=== PATIENT | female | born 1990 | race Caucasian/White ===

== ENCOUNTER 2018-02-23 04:25 | Inpatient (IN) ==
[2018-02-23] MEDS ORDERED: miSOPROStol 25 MCG TABLET PO PRN (05:55)
[2018-02-23] MEDS ORDERED: Famotidine 20 MG/2 ML VIAL IVP PRN (05:55)
[2018-02-23] MEDS ORDERED: *HR* Nalbuphine 10 MG/ML AMPUL IVP PRN (05:55)
[2018-02-23] MEDS ORDERED: Metoclopramide 10 MG/2 ML VIAL IVP PRN (05:55)
[2018-02-23] MEDS ORDERED: Ringers Solution, Lactated 1,000 ML IVC SCH (06:00)
[2018-02-23 06:41] LABS: Basophils % 0.2 %; Eosinophils # 0.1 K/mcL (0.0-0.6); Eosinophils % 0.9 %; Hematocrit 32.3 % (35.3-44.9); Hemoglobin 10.1 g/dL (11.5-15.4); Immature Granulocytes % 0.7 % (0-4); Lymphocytes # 3.8 K/mcL (0.6-4.6); Lymphocytes % 31.3 %; Mean Corpuscular HGB Conc 31.3 g/dL (31.6-35.5); Mean Corpuscular Hemoglobin 25.9 pg (28.0-33.3); Mean Corpuscular Volume 82.8 fL (83.0-100.0); Mean Platelet Volume 12.8 fL (9.4-12.4); Monocytes % 8.4 %; Neutrophils # 7.1 K/mcL (1.6-8.9); Platelet Count 188 K/mcL (140-400); Red Cell Distribution Width 12.9 % (11.5-14.5); Segmented Neutrophils % 58.5 %
[2018-02-23 06:50] LABS: Amphetamine Screen,Urine Negative ng/mL (Cutoff=1000); Barbiturate Screen,Urine Negative ng/mL (Cutoff=200); Benzodiazepines Screen,Urine Negative ng/mL (Cutoff=200); Cannabinoid Screen,Urine Negative ng/mL (Cutoff = 50); Cocaine Screen,Urine Negative ng/mL (Cutoff= 300); Opiate Screen,Urine Negative ng/mL (Cutoff=300); Phencyclidine Screen,Urine Negative ng/mL (Cutoff=25)
[2018-02-23] MEDS ORDERED: Acetaminophen 325 MG TABLET PO ONE (08:38)
--- NOTE | 2018-02-23 13:12 | OB Labor Progress Note ---
Date of Encounter: 02/23/18 Time of Encounter: 13:10 Labor Progress Note - Subjective Subjective: Pt reports uc's getting stronger - Cervix Cervix: 5/90/-1 - Heart Tones Heart Tones: RNST - [place]: uc's q 2-3 rashmi. - Interventions Interventions: AROM clear - Plan Plan: Expect
[2018-02-23] MEDS ORDERED: Epidural Premix (fent/bupiv) 110 ML EP ONE (13:23)
[2018-02-23] MEDS ORDERED: Epidural Premix (fent/bupiv) 110 ML EP SCH (13:30)
--- NOTE | 2018-02-23 14:05 | Anesthesia Evaluation PreOp ---
Date of Encounter: 02/23/18 Time of Encounter: 13:20 - Past History Planned Operation: MILAD Cardiac History: Denies any Significant Hx Pulmonary History: Denies Any Significant HX MANAGER USER EXPERIENCE History: Denies Any Significant HX Other Medical History: Denies Any Significant HX Anesthesia History: No Prior Anesthetic Complications : No Alcohol Use: none Drug use: none Medications and Allergies Omeprazole [PriLOSEC] 20 mg PO BID 02/23/18 [History] 3 Allergy/AdvReac Type Severity Reaction Status Date / Time Amoxicillin [From Augmentin] Allergy Rash Verified 02/23/18 05:52 clavulanic acid Allergy Rash Verified 02/23/18 05:52 [From Augmentin] sulfamethoxazole Allergy See Verified 02/23/18 05:52 [From Bactrim] Comments trimethoprim [From Bactrim] Allergy See Verified 02/23/18 05:52 Comments Anesthesia Results - Labs 02/23/18 06:30
--- NOTE | 2018-02-23 14:18 | Anesthesia Procedures ---
Date of Encounter: 02/23/18 Time of Encounter: 13:20 Procedures: Anesthesia - Epidural/Spinal Patient ID/Chart reviewed: Yes Patient examined: Yes OB Eval: Gestational age: 40 OB Eval: : 2 OB Eval: Hx Para: 1 OB Eval: Dilated at (cm): 5 OB Eval: Contractions: Non-stressed pattern Consent Obtained: Yes Supplemental Oxygen: None/Room Air Site Prep: Aseptic Technique, Sterile prep and drape, Povidone-Iodine 1% Patient position: upright Amount of Local Anesthetic used: 3 Touhy Needle Gauge: 18 Touhy Needle Depth (cm): 6 Catheter Depth at Skin (cm): 9 Test Dose Result: Negative Infusion Rate (mls/hr): [address]: Tegaderm, Tape Interspace Used: L4-L5 Loss of Resistance (KEYSHAWN): Yes Blood: No CSF: No Paresthesia: No Vitals + FHT's: STABLE THROUGHOUT SEE NURSING NOTES
[2018-02-23] MEDS ORDERED: Oxytocin 20 units/ LR 1000 mL 20 UNIT/1,000 ML BAG IVC ONE ×2 (15:27→18:32)
--- NOTE | 2018-02-23 16:21 | OB/GYN Procedure Note ---
Delivery - Delivery Date: 02/23/18 Provider: Crow Cochran Intrapartum events: none Delivery induction: misoprostol Delivery augmentation: rupture of membranes Delivery monitor: external FHT, external uterine Anesthesia: epidural Estimated Blood Loss: 300 - Infant (s) A Delivery Date: 02/23/18 Delivery Time: 15:39 Presentation: vertex Position: OA Gender: Male Viability: Viable Weight Gram: 4.22 kg at 1 minute: 8 at 5 mins: 9 Shoulder Dystocia: not encountered Specimens collected: cord blood Placenta: spontaneous Cord: 3 umbilical vessels - Repair Episiotomy: none Laceration Description: Perineal - 3rd Degree - Complications Delivery complications: none Delivery comments: 3rd degree laceration repaired with 2-0 and 3-0 Vicryl - Disposition Mom disposition: stable in LDR [place] disposition: stable in LDR - Comments Comments: Pt s/p of liveborn janis 9lb 5oz with Apgars 8 at 1 min and 9 at 5 min. Partial 3rd degree laceration repaired with 2-0 and 3-0 Vicryl under epidural aneshesia. Spontneous delivery of normal placenta with 3 vc. EBL 300 cc. Mother and infant recovered in LDR.
--- NOTE | 2018-02-23 16:24 | OB/GYN History & Physical ---
Date of Encounter: 02/23/18 Time of Encounter: 16:22 Assessment and Plan (1) 39 weeks gestation of Current visit: No Status: Acute Will admit to labor and delivery. Expect . (2) Elective induction of labor planned Current visit: No Status: Acute History of Present Illness Chief complaint: Here for induction HPI: Ms. Jarquin is a 27 year old female 27 yp female presents at term for induction of labor. has been uncomplicated. Upon arrival she reports irregular uc's, no vb or lof. Past Med Surg Social Fam HX - Past Medical History Source: patient, old records reviewed Medical history: asthma Psychiatric history: no psych history - Past Surgical History Surgical History: appendectomy - Social History Smoking Status: Former smoker Smokeless Tobacco Status: No Alcohol use: none Drug use: none - Family History Mother History Unknown: Yes Family Member Ethnicity: Non- Living Status: Still Living Hx Family Cardiac Disorders: Yes (high blood pressure) Hx Family Endocrine Disorder: Yes (high cholesterol) Hx Family Medical Disorders: Yes (HTN) Obstetrical History - Pregnancies : 2 Medications and Allergies Omeprazole [PriLOSEC] 20 mg PO BID 02/23/18 [History] 3 Allergy/AdvReac Type Severity Reaction Status Date / Time Amoxicillin [From Augmentin] Allergy Rash Verified 02/23/18 05:52 clavulanic acid Allergy Rash Verified 02/23/18 05:52 [From Augmentin] sulfamethoxazole Allergy See Verified 02/23/18 05:52 [From Bactrim] Comments trimethoprim [From Bactrim] Allergy See Verified 02/23/18 05:52 Comments Exam - Vital Signs Vital signs: Initial Vital Signs Temp Pulse Resp BP 97.4 F L 88 14 131/85 02/23/18 05:38 02/23/18 05:38 02/23/18 05:38 02/23/18 05:38 - Constitutional Constitutional: well developed, well nourished, no acute distress - HEENT HEENT: EOMI, PERRL - Neck Neck exam: full ROM - Lungs Respiratory exam: CTAB - Cardiovascular Cardiovascular exam: RRR - Abdomen Abdomen: Present: gravid - Cervix Dilation: 4 Effacement: 80 Station: -2 Results Result Diagrams: 02/23/18 06:30 Abnormal lab results WBC 12.2 K/mcL (4.3-11.1) H 02/23/18 06:30 Hgb 10.1 g/dL (11.5-15.4) L 02/23/18 06:30 Hct 32.3 % (35.3-44.9) L 02/23/18 06:30 MCV 82.8 fL (83.0-100.0) L 02/23/18 06:30 MCH 25.9 pg (28.0-33.3) L 02/23/18 06:30 MCHC 31.3 g/dL (31.6-35.5) L 02/23/18 06:30 MPV 12.8 fL (9.4-12.4) H 02/23/18 06:30 All other labs normal. - VTE Reasons for not Prescribing Prophylaxis: Treatment not Indicated - Low risk for VTE
[2018-02-23] MEDS ORDERED: Acetaminophen 325 MG TABLET PO PRN (18:42)
[2018-02-23] MEDS ORDERED: Lanolin 28 GM TUBE TP PRN (18:42)
[2018-02-23] MEDS ORDERED: Benzocaine/Menthol 56 GM AEROSOL SPRAY TP PRN (18:42)
[2018-02-23] MEDS ORDERED: Oxytocin 20 units/ LR 1000 mL 20 UNIT/1,000 ML BAG IVC SCH (18:42)
[2018-02-23] MEDS ORDERED: Rho Immune Globulin 1,500 UNIT SYRINGE IM PRN (18:42)
[2018-02-23] MEDS: Ibuprofen 600 MG TABLET PO PRN (22:07)
[2018-02-24 04:51] LABS: Basophils % 0.2 %; Eosinophils # 0.1 K/mcL (0.0-0.6); Eosinophils % 0.9 %; Hematocrit 27.7 % (35.3-44.9); Hemoglobin 8.6 g/dL (11.5-15.4); Immature Granulocytes % 0.6 % (0-4); Lymphocytes # 3.6 K/mcL (0.6-4.6); Lymphocytes % 29.1 %; Mean Corpuscular Hemoglobin 25.9 pg (28.0-33.3); Mean Corpuscular Volume 83.4 fL (83.0-100.0); Mean Platelet Volume 12.8 fL (9.4-12.4); Monocytes # 0.8 K/mcL (0.0-1.3); Monocytes % 6.5 %; Neutrophils # 7.8 K/mcL (1.6-8.9); Platelet Count 147 K/mcL (140-400); Red Blood Count 3.32 M/mcL (3.82-4.97); Red Cell Distribution Width 12.9 % (11.5-14.5); Segmented Neutrophils % 62.7 %
[2018-02-24] MEDS: Ibuprofen 600 MG TABLET PO PRN ×2 (08:07→16:23)
[2018-02-24] MEDS ORDERED: Prenatal Vit/FA 1 EACH TABLET PO SCH (09:00)
[2018-02-24 09:06] VITALS: BP 81/42
--- NOTE | 2018-02-24 09:34 | Discharge Summary ---
Date of Encounter: 02/24/18 Time of Encounter: 09:29 - Discharge Diagnosis (1) anemia Priority: Secondary Status: Acute Comments: Continue iron twice a day for 3 months (2) Vaginal delivery Priority: Primary Status: Acute Comments: Pain well controlled with by mouth pain meds Out of bed without dizziness Tolerating regular diet Voiding independently Passing flatus, but no BM yet Lochia light Breast feeding well Discharge home today (3) Third degree perineal laceration during delivery Priority: Secondary Status: Acute Comments: Continue by mouth pain meds at home Qualifiers: Third degree perineal laceration subtype: unspecified Qualified Code(s): O70.20 - Third degree perineal laceration during delivery, unspecified (4) Breast feeding status of mother Priority: Secondary Status: Acute Comments: consult when necessary - Discharge Medications Prescriptions: Ibuprofen [Motrin] 600 mg PO Q6HR PRN #60 tablet PRN Reason: Cramping Docusate [Colace] 100 mg PO BID #60 capsule Ferrous Sulfate 325 mg PO BID #60 tablet HYDROcodone/Acet 5/325 mg [[place] 5-325 mg] 1 tab PO Q4H PRN 5 Days #30 tab PRN Reason: Moderate Pain Home Medications: Omeprazole [PriLOSEC] 20 mg PO BID 02/23/18 [History] Acetaminophen [Tylenol] 650 mg PO Q6HR PRN tablet 02/24/18 [Rx] Benzocaine/Menthol [place] [Dermoplast [place]] 1 appl TP QID PRN aerosol 02/24/18 [Rx] Docusate [Colace] 100 mg PO BID #60 capsule 02/24/18 [Rx] Ferrous Sulfate 325 mg PO BID #60 tablet 02/24/18 [Rx] HYDROcodone/Acet 5/325 mg [[place] 5-325 mg] 1 tab PO Q4H PRN 5 Days #30 tab 02/24 [Rx] Ibuprofen [Motrin] 600 mg PO Q6HR PRN #60 tablet 02/24/18 [Rx] Lanolin 1 appl TP QID PRN tube 02/24/18 [Rx] Vit/FA 1 each PO DAILY tablet 02/24/18 [Rx] Allergies/Adverse Reactions: 3 Allergy/AdvReac Type Severity Reaction Status Date / Time Amoxicillin [From Augmentin] Allergy Rash Verified 02/23/18 05:52 clavulanic acid Allergy Rash Verified 02/23/18 05:52 [From Augmentin] sulfamethoxazole Allergy See Verified 02/23/18 05:52 [From Bactrim] Comments trimethoprim [From Bactrim] Allergy See Verified 02/23/18 05:52 Comments Data Procedures and tests throughout hospitalization: Laboratory Tests 02/23/18 02/23/18 02/23/18 06:30 06:30 16:09 WBC 12.2 H RBC 3.90 Hgb 10.1 L Hct 32.3 L MCV 82.8 L MCH 25.9 L MCHC 31.3 L RDW 12.9 Plt Count 188 MPV 12.8 H Immature Gran % 0.7 Seg Neutrophils % 58.5 Lymphocytes % 31.3 Monocytes % 8.4 Eosinophils % 0.9 Basophils % 0.2 Neutrophils # 7.1 Lymphocytes # 3.8 Monocytes # 1.0 Eosinophils # 0.1 Basophils # 0.0 Urine Opiates Screen Negative Ur Barbiturates Screen Negative Ur Phencyclidine Scrn Negative Ur Amphetamines Screen Negative U Benzodiazepines Scrn Negative Urine Cocaine Screen Negative U Marijuana (THC) Screen Negative Screen Cancelled Baby's Blood Type A RH NEGATIVE Mother's Blood Type A RH NEGATIVE Rhogam Indicated NO Rhogam Req for Mother Cancelled 02/24/18 04:08 WBC 12.4 H RBC 3.32 L Hgb 8.6 L D Hct 27.7 L MCV 83.4 MCH 25.9 L MCHC 31.0 L RDW 12.9 Plt Count 147 MPV 12.8 H Immature Gran % 0.6 Seg Neutrophils % 62.7 Lymphocytes % 29.1 Monocytes % 6.5 Eosinophils % 0.9 Basophils % 0.2 Neutrophils # 7.8 Lymphocytes # 3.6 Monocytes # 0.8 Eosinophils # 0.1 Basophils # 0.0 Urine Opiates Screen Ur Barbiturates Screen Ur Phencyclidine Scrn Ur Amphetamines Screen U Benzodiazepines Scrn Urine Cocaine Screen U Marijuana (THC) Screen Screen Baby's Blood Type Mother's Blood Type Rhogam Indicated Rhogam Req for Mother Labs on day of discharge: Labs from last 24 hours 02/24/18 02/23/18 04:08 16:09 WBC 12.4 H RBC 3.32 L Hgb 8.6 L D Hct 27.7 L MCV 83.4 MCH 25.9 L MCHC 31.0 L RDW 12.9 Plt Count 147 MPV 12.8 H Immature Gran % 0.6 Seg Neutrophils % 62.7 Lymphocytes % 29.1 Monocytes % 6.5 Eosinophils % 0.9 Basophils % 0.2 Neutrophils # 7.8 Lymphocytes # 3.6 Monocytes # 0.8 Eosinophils # 0.1 Basophils # 0.0 Screen Cancelled Baby's Blood Type A RH NEGATIVE Mother's Blood Type A RH NEGATIVE Rhogam Indicated NO Rhogam Req for Mother Cancelled Date of admission: 02/23/18 04:25 Primary care physician: PCP NONE Consults: 02/23/18 18:42 Consult to Sql Server Consultant [CONS] Routine Comment: Vaginal delivery, consult needed Discharging clinician: Krystal Drew Anticipated date of discharge: 02/24/18 - Patient Status Disposition: Home, Self-Care Condition: Good Functional capacity at discharge: independent ambulation Overall status at discharge: patient is progressing back to baseline - Discharge Instructions Follow Up With: NONE,PCP [Primary Care Provider] - Crow Cochran MD [Partnered Physician] - - Diet and Activity Activity: increase activity as tolerated Diet: regular diet Hospital Course Reason for admission: induction of labor, IUP at term Delivery: Episiotomy: none Laceration: 3rd degree Other procedures: none complications: none Discharge diagnosis: IUP at term delivered [place] baby: male Time Attestation: Total time spent providing and/or coordinating discharge services: Time Spent: Less than 30 minutes Exam - Constitutional Vitals: Temp Pulse Resp BP Pulse Ox 97.8 F 80 12 81/42 99 02/24/18 08:00 02/24/18 08:00 02/24/18 08:00 02/24/18 08:00 02/24/18 08:00 General appearance IM: mild distress, A&O X 3 - Respiratory Respiratory exam: Present: CTAB - Cardiovascular Cardiovascular exam IM: Present: RRR, +S1, +S2 - GI/Abdominal GI/Abdominal exam IM: normal bowel sounds, no peritoneal signs - Rectal Rectal exam: laceration - External exam: lacerations Uterine Tone: Firm Uterus Position: At Umbilicus, Midline - Extremities Exam Extremities exam IM: Present: normal inspection, radial pulses palpable and symmetrical - Neurological Exam Neurological exam: alert, oriented X3 - Psychiatric Additional comments: Patient is feeling mentally well today. She denies any history of anxiety or depression. Signs and symptoms of depression discussed and patient verbalized understanding of when to call.
== END 2018-02-24 18:00 | disposition home or self-care (01) | DRG 542 ==
LOC: 1NENULAB 04:25 → 1NENUOBS 18:41
PROVIDERS: ADMIT Obstetrics & Gynecology; ATTEND Obstetrics & Gynecology